=== PATIENT | male | born 1980 | race Caucasian/White ===

== ENCOUNTER 2024-07-25 23:27 | Emergency (ER) | payer MEDICAID, OTHER ==
[~2024-07-25] VITALS: Ht 170.2 cm; Wt 100.0 kg
[2024-07-25 23:30] VITALS: O2SAT 100
[2024-07-25 23:47] VITALS: BP 148/96; PULSE 60; TEMP 98.2; O2SAT 97
[2024-07-26] MEDS: IBUPROFEN 400MG TABLET PO ONE (01:21)
[2024-07-26] MEDS: ACETAMINOPHEN 325MG TABLET PO ONE (01:21)
[2024-07-26] MEDS ORDERED: IBUP-2028 MT (02:30)
[2024-07-26] MEDS ORDERED: LIDO700A15 TP (02:30)
[2024-07-26] MEDS ORDERED: METH-653 MT (02:30)
[2024-07-26] MEDS ORDERED: TOPUD PO (02:30)
[2024-07-26 02:39] VITALS: RESP 19
== END 2024-07-26 02:39 | disposition home or self-care (01) ==
LOC: ER 23:27
DX: S13.4XXA Sprain of ligaments of cervical spine, initial encounter (principal); S39.012A Strain of muscle, fascia and tendon of lower back, initial encounter; V49.59XA Passenger injured in collision with other motor vehicles in traffic accident, initial encounter; Y93.89 Activity, other specified; Y92.89 Other specified places as the place of occurrence of the external cause; Y99.8 Other external cause status
CPT/HCPCS: 71045; 72040; 72100; 93005; 99284